=== PATIENT | female | born 1985 | race Caucasian/White ===

== ENCOUNTER 2018-12-01 11:15 | Emergency (ER) | payer OTHER ==
--- NOTE | 2018-12-01 11:43 | ER Document Report ---
ED Medical Screen (RME) - General Chief Complaint: Vaginal Bleeding Stated Complaint: DIZZINESS/VAGINAL BLEEDING Time Seen by Provider: 12/01/18 11:39 Mode of Arrival: Ambulatory Information source: Patient Notes: 33-year-old female presented to ED for vaginal bleeding for 8 days. She states this is from normal but it is a lot heavier and lasting longer than her normal. She states she has become dizzy now from the bleeding. She states she is passing a lot of clots. She states she uses a menstrual cup and she throwing that up every 10 to 15 minutes. She does have a history of an ovarian cyst. She denies any surgeries. She states she does not smoke or use any illicit drugs but she does drink monthly. She states she has been dizzy with a racing heartbeat for the last 3 days intermittently. Her I have greeted and performed a rapid initial assessment of this patient. A comprehensive ED assessment and evaluation of the patient, analysis of test results and completion of medical decision making process will be conducted by an additional ED providers. Physical Exam - Vital signs Vitals: Temp Pulse Resp BP Pulse Ox 98.5 F 95 18 142/73 H 100 12/01/18 11:19 12/01/18 11:19 12/01/18 11:19 12/01/18 11:19 12/01/18 11:19 Course - Vital Signs Vital signs: Temp Pulse Resp BP Pulse Ox 98.5 F 95 18 142/73 H 100 12/01/18 11:19 12/01/18 11:19 12/01/18 11:19 12/01/18 11:19 12/01/18 11:19
[2018-12-01] MEDS ORDERED: NORMAL SALINE 1000 ML 1,000 ML IV ONE (11:44)
[2018-12-01 12:51] LABS: ABSOLUTE BASOPHILS # (AUTO) 0.1 10^3/uL (0.0-0.2); ABSOLUTE LYMPHOCYTES (AUTO) 1.4 10^3/uL (0.5-4.7); ABSOLUTE MONOCYTES (AUTO) 0.3 10^3/uL (0.1-1.4); ABSOLUTE NEUT (AUTO) 4.7 10^3/uL (1.7-8.2); BASOPHILS % (AUTO) 0.8 % (0-2); EOSINOPHILS % (AUTO) 0.4 % (0-6); HEMATOCRIT 31.3 % (36.0-47.0); LYMPHOCYTES % (AUTO) 21.7 % (13-45); MEAN CORPUSCULAR HEMOGLOBIN 23.6 pg (27.0-33.4); MEAN CORPUSCULAR VOLUME 74 fl (80-97); MONOCYTES % (AUTO) 5.1 % (3-13); PLATELET COUNT 317 10^3/uL (150-450); RED BLOOD COUNT 4.25 10^6/uL (3.72-5.28); RED CELL DISTRIBUTION WIDTH 16.4 % (11.5-14.0); TOTAL CELLS COUNTED % (AUTO) 100 %; WHITE BLOOD COUNT 6.5 10^3/uL (4.0-10.5)
[2018-12-01 13:18] LABS: ALBUMIN 4.8 g/dL (3.5-5.0); ALKALINE PHOSPHATASE 54 U/L (38-126); ANION GAP 10 (5-19); ASPARTATE AMINO TRANSFERASE 28 U/L (14-36); BILIRUBIN,DIRECT 0.1 mg/dL (0.0-0.4); BILIRUBIN,TOTAL 0.4 mg/dL (0.2-1.3); BLOOD UREA NITROGEN 11 mg/dL (7-20); CALCIUM 9.6 mg/dL (8.4-10.2); CARBON DIOXIDE 27 mmol/L (22-30); CHLORIDE 104 mmol/L (98-107); GLUCOSE 96 mg/dL (75-110); POTASSIUM 4.4 mmol/L (3.6-5.0); TOTAL PROTEIN 8.2 g/dL (6.3-8.2)
[2018-12-01 13:19] LABS: APPEARANCE,URINE SLIGHTLY-CLOUDY; BILIRUBIN,URINE NEGATIVE (NEGATIVE); COLOR,URINE YELLOW; GLUCOSE, URINE NEGATIVE (NEGATIVE); KETONES,URINE NEGATIVE (NEGATIVE); LEUKOCYTE ESTERASE,URINE NEGATIVE (NEGATIVE); NITRITE,URINE NEGATIVE (NEGATIVE); PROTEIN,URINE NEGATIVE (NEGATIVE); URINE SPECIFIC GRAVITY 1.016; UROBILINOGEN,URINE NEGATIVE mg/dL (<2.0)
--- NOTE | 2018-12-01 13:42 | ER Document Report ---
Entered by RUTH WILL SCRIBE 12/01/18 1212 Acting as scribe for:MANPREET PENALOZA MD ED GI/ - General Chief Complaint: Vaginal Bleeding Stated Complaint: DIZZINESS/VAGINAL BLEEDING Time Seen by Provider: 12/01/18 11:39 Mode of Arrival: Ambulatory Information source: Patient Notes: Patient is a 33-year-old female who presents to the emergency department today w ith complaints of abnormally heavy and lengthy menstrual cycle. Patient states that her periods are always heavy but this is much heavier than normal. Patient states her normal periods usually last around 6 or 7 days but towards the end the bleeding becomes very light. This current period is on day number 8 and it is still heavy. Patient states her period was on time. Patient states she started taking iron 2 days ago as she felt like she was anemic. Patient states that she has been tired and dizzy. TRAVEL OUTSIDE OF THE [place] IN LAST 30 DAYS: No - Related Data Allergies/Adverse Reactions: Penicillins Allergy (Verified 12/01/18 11:47) Past Medical History - General Information source: Patient - Social History Smoking Status: Never Smoker Cigarette use (# per day): No Chew tobacco use (# tins/day): No Frequency of alcohol use: Occasional Drug Abuse: None Family History: Reviewed & Not Pertinent Patient has suicidal ideation: No Patient has homicidal ideation: No Review of Systems - Review of Systems Constitutional: No symptoms reported EENT: No symptoms reported Cardiovascular: See HPI, Dizziness, Lightheaded Respiratory: No symptoms reported Gastrointestinal: No symptoms reported Genitourinary: No symptoms reported Female Genitourinary: See HPI, Heavy/abnormal periods, Vaginal bleeding Musculoskeletal: No symptoms reported Skin: No symptoms reported Hematologic/Lymphatic: No symptoms reported Neurological/Psychological: No symptoms reported -: Yes All other systems reviewed and negative Physical Exam - Vital signs Vitals: Temp Pulse Resp BP Pulse Ox 98.5 F 95 18 142/73 H 100 12/01/18 11:19 12/01/18 11:19 12/01/18 11:19 12/01/18 11:19 12/01/18 11:19 - Notes Notes: Physical Exam: General: Alert, appears well. HEENT: Normocephalic. Atraumatic. PERRL. Extraocular movements intact. Oropharynx clear. Neck: Supple. Non-tender. Respiratory: No respiratory distress. Clear and equal breath sounds bilaterally. Cardiovascular: Regular rate and rhythm. Abdominal: Normal Inspection. Non-tender. No distension. Normal Bowel Sounds. Back: No gross abnormalities. Extremities: Moves all four extremities. Upper extremities: Normal inspection. Normal ROM. Lower extremities: Normal inspection. No edema. Normal ROM. Neurological: Normal cognition. AAOx4. Normal speech. Psychological: Normal affect. Normal Mood. Skin: Warm. Dry. Normal color. Course - Vital Signs Vital signs: Temp Pulse Resp BP Pulse Ox 98.5 F 64 18 113/65 100 12/01/18 11:19 12/01/18 12:45 12/01/18 11:19 12/01/18 12:45 12/01/18 11:19 - Laboratory Result Diagrams: 12/01/18 12:26 12/01/18 12:26 Laboratory results interpreted by me: 12/01/18 12/01/18 12:26 12:26 Hgb 10.0 L Hct 31.3 L MCV 74 L MCH 23.6 L RDW 16.4 H Urine Blood MODERATE H Urine Ascorbic Acid 40 H - Diagnostic Test Radiology reviewed: Reports reviewed - Pelvic ultrasound shows a nonvisualized right ovary, right pelvic kidney, otherwise no acute findings. Discharge - Discharge Clinical Impression: Dysfunctional uterine bleeding Anemia Qualifiers: Anemia type: iron deficiency Iron deficiency anemia type: chronic blood loss Qualified Code(s): D50.0 - Iron deficiency anemia secondary to blood loss (chronic) Condition: Stable Disposition: HOME, SELF-CARE Additional Instructions: Dysfunctional Uterine Bleeding You're having an abnormal pattern of bleeding from the uterus. We call this dysfunctional uterine bleeding. It is most often caused by a hormone imbalance. Most often this is temporary and no cause is found. There's no evidence of , tumors, or infection as a cause. Dysfunctional uterine bleeding is especially common at times when the normal menstrual cycle is disturbed -- whether by recent , use of control pills or hormones, or impending menopause. Some medical problems lead to dysfunctional bleeding, such as obesity or being very underweight, stress, or thyroid problems. In many cases, the menstrual cycle will return to normal without any treatment. Where the bleeding is significant, high-dose estrogen will usually stop the bleeding within a day of two. A cycle or two of hormones ( control pills) can help restore the uterus to normal. In some patients where bleeding is severe or resistant to treatment, a D&C is required. A endometrial biopsy (a sample of the inside of the uterus) may be recommended for some older women. This would be done by a gynecology specialist. Treatment for anemia may be required if bleeding is severe. You should rest and avoid intercourse until the bleeding is controlled. Call the doctor or return for re-examination if you feel faint, have increasing pain, or have a major increase in the amount of bleeding. Start the Provera as prescribed tomorrow. Continue taking your iron tablets. Call your TRANSPORTATION ATTENDANT doctor and let them know about your visit to the emergency room, the ultrasound findings, and the plan to start Provera. RETURN TO THE EMERGENCY ROOM IF ANY NEW OR WORSENING SYMPTOMS. Prescriptions: Medroxyprogesterone Acet [Provera 10 Mg Tablet] 10 mg PO DAILY #10 tablet Scribe Attestation: 12/01/18 13:50 I personally performed the services described in the documentation, reviewed and edited the documentation which was dictated to the scribe in my presence, and it accurately records my words and actions. I personally performed the services described in the documentation, reviewed and edited the documentation which was dictated to the scribe in my presence, and it accurately records my words and actions.
--- NOTE | 2018-12-01 14:22 | RADIOLOGY REPORT (SQ) ---
EXAM DESCRIPTION: U/S NON-OB PELVIS W/O DOP COMPLETED DATE/TIME: 12/01/2018 2:05 pm REASON FOR STUDY: vaginal bleeding COMPARISON: None. TECHNIQUE: Dynamic and static grayscale images acquired of the pelvis via transabdominal approach an d recorded on PACS. Additional selected color Doppler images recorded. LIMITATIONS: None. FINDINGS: UTERUS: The uterus measures 8.4 x 5.7 x 4.4 cm. No focal myometrial mass was seen. ENDOMETRIAL STRIPE: The endometrium measures 5 mm in double wall thickness. CERVIX: Not visualized. RIGHT OVARY AND DOPPLER: Not visualized right ovary. LEFT OVARY AND DOPPLER: The left ovary measures 4.0 x 2.7 x 2.4 cm. Flow by color Doppler was shown to the left ovary. Small follicles are noted. FREE FLUID: None noted. OTHER: A pelvic kidney was visualized on the right side measuring 8.3 x 5.4 x 4.8 cm. No hydronephro sis. IMPRESSION: 1. Nonvisualized right ovary. Otherwise, no acute findings. 2. Right pelvic kidney. TECHNICAL DOCUMENTATION: JOB ID: [id number] [employer]- All Rights Reserved Rev-07/13 Reading location - IP/workstation name: [email or web address]
[2018-12-01] MEDS ORDERED: MEDROXYPROGESTERONE ACET 10 MG TABLET PO ONE (14:55)
[2018-12-01 15:32] VITALS: BP 138/68
== END 2018-12-01 15:40 | disposition home or self-care (01) ==
LOC: EDSEX → ER 11:15
DX: N93.8 Other specified abnormal uterine and vaginal bleeding (principal); D50.9 Iron deficiency anemia, unspecified; R42 Dizziness and giddiness; Z88.0 Allergy status to penicillin
CPT/HCPCS: 99284; 96360; 86900; 86901; 36415; 86850; 84703; 85025; 80053; 81001; 76856; J7030